=== PATIENT | male | born 2000 | race African-American/Black ===

== ENCOUNTER 2020-04-29 11:17 | Emergency (ER) | payer OTHER ==
[~2020-04-29] VITALS: Ht 167.6 cm; Wt 81.6 kg
[2020-04-29 11:17] VITALS: TEMP 98.2
[2020-04-29 14:25] VITALS: BP 151/85
== END 2020-04-29 15:10 | disposition short-term general hospital (02) ==
LOC: ED 11:35
PROC: 03QD0ZZ Repair Right Hand Artery, Open Approach (ICD-10-PCS; principal; 2020-04-29)
DX: S62.650B Nondisplaced fracture of middle phalanx of right index finger, initial encounter for open fracture (principal); W26.8XXA Contact with other sharp object(s), not elsewhere classified, initial encounter; Y92.513 Shop (commercial) as the place of occurrence of the external cause
CPT/HCPCS: 90471; 90715; 96360; 96361; 96372; 96375; 99284; J2270; J2405; J7040